=== PATIENT | female | born 1955 | race Caucasian/White ===

== ENCOUNTER 2020-11-14 12:57 | Emergency (ER) | payer MEDICARE, BC ==
[~2020-11-14] VITALS: Ht 152.4 cm; Wt 93.9 kg
[2020-11-14 13:05] VITALS: BP 161/99
[2020-11-14] MEDS ORDERED: CARI350T PO (13:17)
--- NOTE | 2020-11-14 13:32 | NUR ---
Patient discharged to home in stable condition. Written and verbal after care instructions given. Patient verbalizes understanding of instruction.
== END 2020-11-14 13:33 | disposition home or self-care (01) ==
LOC: ER 13:08
DX: S13.8XXA Sprain of joints and ligaments of other parts of neck, initial encounter (principal); I10 Essential (primary) hypertension; I25.2 Old myocardial infarction; Z95.5 Presence of coronary angioplasty implant and graft; Z79.899 Other long term (current) drug therapy; V49.49XA Driver injured in collision with other motor vehicles in traffic accident, initial encounter; Y93.89 Activity, other specified; Y92.488 Other paved roadways as the place of occurrence of the external cause; Y99.8 Other external cause status